=== PATIENT | female | born 1990 | race African-American/Black ===

== ENCOUNTER 2018-01-31 21:25 | Emergency (ER) | payer SELFPAY | END 2018-01-31 22:03 | disposition home or self-care (01) | LOC: ERS 21:25 | DX: K04.7 Periapical abscess without sinus (principal); K03.81 Cracked tooth; K02.9 Dental caries, unspecified; F31.9 Bipolar disorder, unspecified; F41.9 Anxiety disorder, unspecified; Z87.891 Personal history of nicotine dependence | CPT/HCPCS: 99282 ==

== ENCOUNTER 2018-03-01 17:48 | Emergency (ER) | payer OTHER, SELFPAY ==
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
== END 2018-03-01 20:09 | disposition home or self-care (01) ==
LOC: ERS 17:48
DX: S43.402A Unspecified sprain of left shoulder joint, initial encounter (principal); F41.9 Anxiety disorder, unspecified; F31.9 Bipolar disorder, unspecified; F20.9 Schizophrenia, unspecified; F17.210 Nicotine dependence, cigarettes, uncomplicated; Z79.899 Other long term (current) drug therapy; V49.9XXA Car occupant (driver) (passenger) injured in unspecified traffic accident, initial encounter
CPT/HCPCS: 99406

== ENCOUNTER 2018-05-19 10:00 | Emergency (ER) | payer OTHER, SELFPAY | END 2018-05-19 10:49 | disposition home or self-care (01) | LOC: ERS 10:00 | DX: J20.9 Acute bronchitis, unspecified (principal); F41.9 Anxiety disorder, unspecified; F31.9 Bipolar disorder, unspecified; F20.9 Schizophrenia, unspecified; F17.210 Nicotine dependence, cigarettes, uncomplicated; Z79.899 Other long term (current) drug therapy | CPT/HCPCS: 99283 ==

== ENCOUNTER 2018-06-28 22:35 | Emergency (ER) | payer SELFPAY | END 2018-06-28 23:11 | disposition home or self-care (01) | LOC: ERS 22:35 | DX: K03.81 Cracked tooth (principal); F41.9 Anxiety disorder, unspecified; F31.9 Bipolar disorder, unspecified; F20.9 Schizophrenia, unspecified; Z79.899 Other long term (current) drug therapy; Z87.891 Personal history of nicotine dependence; X58.XXXA Exposure to other specified factors, initial encounter | CPT/HCPCS: 99282 ==